=== PATIENT | male | born 1970 | race Caucasian/White ===

== ENCOUNTER 2016-08-03 21:18 | Inpatient (IN) | payer MEDICARE, OTHER ==
--- NOTE | ~2016-08-03 | HP ---
History And Physical [address] [place]. [address] NAME: NELSON ROBINS : 72 STATUS : ADM IN PAT#: [id number] AGE: 46 ADM/REG DATE : 08/03/16 MR#: [id number] REPORT SERV DATE: 08/04/16 DICTATED BY: DAVID GARCES DATE: 08/04/16 REPORT STATUS : Draft TRANSCRIBED BY: MODL DATE: 08/04/16 DATE OF ADMISSION: 08/03/2016 CHIEF COMPLAINT: A 46-year-old male, presenting with abdominal pain and vomiting. HISTORY OF PRESENT ILLNESS: The patient's history was obtained through careful interview with the patient, coupled with review of [facility] medical records. The patient states on 08/01/2016 he began to feel sick with typical symptoms of his gastroparesis. He described nausea, vomiting, unable to eat anything for two days. He has had fevers, chills, and diarrhea. He also describes left upper quadrant abdominal discomfort radiating to the epigastric portion of his stomach, cramping quality, 9/10 severity. No shortness of breath. No chest pain. No light headedness. REVIEW OF SYSTEMS: Otherwise, complete review of systems 14-point was reviewed and was negative. PAST MEDICAL HISTORY: 1. HIV, but has been on medications for years with good CD4 count. 2. Bipolar disorder with anxiety. 3. Recurrent colitis. 4. Gastroparesis. 5. Peptic ulcer disease seen by Dr. Antoine. PAST SURGICAL HISTORY: 1. Cholecystectomy. 2. Left foot surgery. ALLERGIES: NO KNOWN DRUG ALLERGIES. SOCIAL HISTORY: Quit smoking. No alcohol use. He is . Lives in [place], [place]. Have three children. Lives alone. He is on disability. Previously worked with his father in a [email or web address], and he is also trained as a TEACHERS AIDE. FAMILY HISTORY: Lupus, bipolar disorder, diabetes, and cancer. CURRENT MEDICATIONS: 1. Atripla HIV medication. 2. Klonopin 1 mg every 4 hours as needed. 3. Protonix 40 mg p.o. daily. 4. Zyprexa 15 mg p.o. daily. History And Physical [address] [address] NAME: NELSON ROBINS : 72 STATUS : ADM IN PAT#: [id number] AGE: 46 ADM/REG DATE : 08/03/16 MR#: [id number] REPORT SERV DATE: 08/04/16 DICTATED BY: DAVID GARCES DATE: 08/04/16 REPORT STATUS : Draft TRANSCRIBED BY: SAMARIA DATE: 08/04/16 5. Zoloft 100 mg p.o. daily. PHYSICAL EXAMINATION: VITAL SIGNS: Temperature 99.4, pulse 109, blood pressure 119/74, respiratory rate 20, and O2 saturation 94% on room air. GENERAL: An ill-appearing male, in evidence of distress secondary to vomiting. HEENT: Pupils equal, round, and reactive to light. No conjunctival pallor. No scleral icterus. Nares are patent. Oropharynx is clear of obstruction. Very dry mucous membranes. No intraoral lesions. NECK: Trachea midline. No thyromegaly. LYMPH: No cervical lymphadenopathy. No supraclavicular lymphadenopathy. RESPIRATORY: Clear to auscultation at bases. No wheezes, rales, or rhonchi. Normal respiratory effort. CARDIOVASCULAR: Tachycardic regular rhythm. No murmurs, rubs, or gallops. No extremity edema is appreciated. ABDOMEN: Significant epigastric abdominal pain with guarding. No rebound. Nondistended. Decreased bowel tones. No hepatosplenomegaly. DERMATOLOGICAL: Warm and dry extremities. No pallor. No cyanosis. PSYCHIATRIC: Normal affect. Good mood. Alert and oriented x3. LABORATORY DATA: White blood cell count 27.7, hemoglobin 18, hematocrit 48, and platelets 406. Sodium 133, potassium 4, chloride 96, bicarb 21, BUN 47, creatinine 5.53 from baseline creatinine of 0.87, and glucose 129. Urinalysis shows 6 white blood cells, 6 hyaline casts, lipase 104, lactic acid 1.8, and alkaline phosphatase 191. STUDIES: A CT scan of the abdomen and pelvis was read as negative. ASSESSMENT AND PLAN: 1. Acute renal failure. No obstruction by CT scan. Place on aggressive IV fluids and monitor closely. 2. Gastroparesis exacerbation. Place on IV Reglan and IV azithromycin. 3. Systemic inflammatory response syndrome versus sepsis with white blood cell count of 27.7, and tachycardia. Check blood cultures. Place on empiric IV antibiotics including Levaquin and Flagyl. 4. Human Immunodeficiency Virus, seems well controlled. 5. Bipolar disorder with anxiety. KPL/SAMARIA David Garces M.D. History And Physical [address] [address] NAME: NELSON ROBINS : 72 STATUS : ADM IN PAT#: [id number] AGE: 46 ADM/REG DATE : 08/03/16 MR#: [id number] REPORT SERV DATE: 08/04/16 DICTATED BY: DAVID GARCES DATE: 08/04/16 REPORT STATUS : Draft TRANSCRIBED BY: SAMARIA DATE: 08/04/16 / [id number] CC: MD Holden Zavaleta MD
--- NOTE | ~2016-08-03 | DS ---
Discharge Summary [facility] [address] [facility] [place]. [address] NAME: NELSON ROBINS : 72 STATUS : DIS IN PAT#: [id number] AGE: 46 ADM/REG DATE : 08/03/16 MR#: [id number] REPORT SERV DATE: 08/07/16 DICTATED BY: STEVIE JOHNSON DATE: 08/06/16 REPORT STATUS : Draft TRANSCRIBED BY: MODL DATE: 08/06/16 ADMISSION DATE: 08/03/2016 DISCHARGE DATE: 08/06/2016 DISCHARGE DIAGNOSES: 1. Acute kidney injury. 2. Metabolic acidosis related to acute kidney injury. 3. Volume depletion. 4. Gastroparesis exacerbation. 5. Systemic inflammatory response syndrome. 6. HIV, on highly active anti-retroviral therapy. 7. Bipolar disorder. 8. Previous history of peptic ulcer disease. HISTORY: The patient states that he began two days prior with nausea, vomiting, and abdominal pain, not able to keep anything down, with subjective fever and chills and diarrhea and some left mid abdominal pain. Because of these things, he presented to the emergency room at [facility]. Temp 99.4, pulse 109, respirations 20. His BUN was 47, creatinine 5.5. He was referred to our team for inpatient care. His lactic acid was 1.8. HOSPITAL COURSE: The patient was admitted to the hospital by our accounts receivable specialist partner. He was given IV fluid replacement. He was initially placed on Flagyl and Levaquin. His imaging included CT scan of chest, abdomen and pelvis. The findings by Radiology were only for evidence of previous cholecystectomy, otherwise unremarkable. His procalcitonin level was 0.21 and so he was taken off antibiotics. His white count on presentation was 27.7; by 08/05/2016, it was down to 8.3. Blood cultures no growth. His acute renal injury rapidly improved, so that by discharge, BUN 22 and creatinine 1.02. He did have a metabolic acidosis with his bicarbonate down to 18. He was given some fluids with bicarbonate in them, this resolved, and he was taken off those fluids and his serum bicarbonate stayed in the normal range. This patient's alkaline phosphatase was mildly elevated between 157 to 191, but this has been elevated consistently going back to 2011. His AST was mildly elevated at 68. ALT was normal. His PCP can follow this up longitudinally. He was given one dose of azithromycin 1 g IV at the time of admission to the hospital to help with gastroparesis and no further doses thereafter. At the time of discharge, he is ambulatory, eating solid food. No nausea. No vomiting. No shortness of breath. DISCHARGE MEDICATIONS: Atripla 1 p.o. daily, Zyprexa 15 mg daily, Protonix 40 mg daily, Florastor capsule twice a day for two weeks because he was on some antibiotics short-term here, Zoloft 100 mg daily, Tylenol 650 q.6 hours p.r.n. pain, Klonopin a milligram q.i.d. p.r.n. anxiety which is a chronic medicine for this patient. Discharge Summary [address] [address] NAME: NELSON ROBINS : 72 STATUS : DIS IN PAT#: [id number] AGE: 46 ADM/REG DATE : 08/03/16 MR#: [id number] REPORT SERV DATE: 08/07/16 DICTATED BY: STEVIE JOHNSON DATE: 08/06/16 REPORT STATUS : Draft TRANSCRIBED BY: SAMARIA DATE: 08/06/16 He is to follow up with his PCP, Dr. Holden Eduardo, within the next week or two. He can follow up longitudinally with his GI as well, but this has been somewhat confusing. In the past, he had seen Dr. Antoine and Dr. Edil Diane. He, at times, has seen Dr. Nataliya Li, and on the chart, it says Dr. Almodovar was his GI. I asked him who his GI doctor was right now and he told me he did not really know for sure. 22 minutes spent today in the discharge planning and execution. DICTATED BY: Emerson Murrell/SAMARIA Stevie Johnson M.D. / [id number] CC: Emerson Murrell MARK Richard Sadowitz, M.D. Munford Yates III, M.D. Vijaykurmar Diane, M.D. Ace Elina, M.D.
[2016-08-03 19:53] LABS: ER CBC TAT 0 Hrs 08 Mins; HEMATOCRIT 48.3 % (40.0-51.0); HEMOGLOBIN 17.6 g/dL (13.6-17.8); MEAN CORPUS HGB CONC 36.4 g/dL (32.0-36.0); MEAN CORPUSCULAR HEMOGLOB 31.2 pg (26.0-34.0); MEAN CORPUSCULAR VOLUME 85.5 fL (80-100); MEAN PLATELET VOLUME 12.9 fL (9.2-13.0); PLATELET COUNT 406 10/3/uL (150-400); RBC DISTRIBUTION WIDTH 12.9 % (12.0-16.0); RED CELL COUNT 5.65 10/6/uL (4.7-6.1); WHITE BLOOD CELLS 27.7 10/3/uL (4.5-10.5)
[2016-08-03 19:54] LABS: MANUAL DIFF YES %
[2016-08-03 20:05] LABS: A/G RATIO 1.3 (0.7-1.9); ALBUMIN 5.7 G/DL (3.5-5.0); CO2 (CARBON DIOXIDE) 21 MMOL/L (24-34); GLOBULIN 4.3 G/DL (2.5-4.1); SGOT(AST) 47 U/L (5-40); SGPT(ALT) 26 U/L (5-65); TOTAL BILIRUBIN 0.9 MG/DL (0-1.2)
[2016-08-03 20:06] LABS: ALKALINE PHOSPHATASE 191 U/L (45-117); BUN (BLOOD UREA NITROGEN) 47 MG/DL (6-23); CALCIUM, SERUM 10.5 MG/DL (8.5-10.4); CHLORIDE, SERUM 96 MMOL/L (96-112); CREATININE 5.53 MG/DL (0.70-1.30); GFR AFRICAN AMERICAN 13 ML/MIN (>=60); GFR NON AFRICAN AMERICAN 11 ML/MIN (>=60); GLUCOSE, SERUM 129 MG/DL (60-99); SODIUM, SERUM 133 MMOL/L (135-148)
[2016-08-03 20:07] LABS: ASCORBIC ACID (UR NOT ORDER) 20 (NEG); BILIRUBIN, URINE NEGATIVE (NEG); ER URINALYSIS TAT 0 Hrs 18 Mins; KETONE, URINE TRACE MG/DL (NEG); LEUKOCYTE ESTERASE(NOT OR TRACE (NEG); NITRITE (URINE) NEG (NEG); WBC (NOT ORDERED) (RFLEX) 6 (0-5)
[2016-08-03 20:26] LABS: BAND NEUTROPHILS 6 %; ER DIFF TAT 0 Hrs 41 Mins; LYMPHOCYTES 18 %; LYMPHOCYTES ABSOLUTE (CALC) 4.99 10/3/uL (0.67-4.30); MONOCYTES 5 %; MONOCYTES ABSOLUTE (CALC) 1.39 10/3/uL (0.21-1.20); NEUTROPHILS ABSOLUTE (CALC) 21.33 10/3/uL (2.02-8.40); PLATELET ESTIMATE SLT INC (ADEQUATE); REACTIVE LYMPHS OCC (0-2%) (0-5%); SEGMENTED NEUTROPHIL (0) 71 %; TOTAL NUCLEATED CELLS 100
[~2016-08-03 21:18] MED LIST: ATRIPLA PO; CIP5 PO; FLAG500TAB PO; KLONO1 PO; KLONOPIN PO; LORTAB 5 PO; MEGA RED PO; NORCO1 TA1 PO; PRILOSEC OTC20 MG PO; PROTONIX PO; PROTONIX20 MG PO; PT CANNOT RECALL MED; REG5 PO; SUCR PO; T PO; VITAMIN D PO; ZOFRAN4 PO; ZOFRANODT8 PO; ZOL100 PO; ZOL50 PO; ZYPREXA10 MG PO; ZYPREXA15 MG PO
[2016-08-03 21:21] LABS: DIRECT BILIRUBIN 0.2 MG/DL (0.0-0.4); INDIRECT BILIRUBIN(NOT ORDER) 0.7 MG/DL (0.1-0.9)
[2016-08-03] MEDS ORDERED: KLONO1 PO (21:45)
[2016-08-03 21:46] LABS: LACTATE 1.8 MMOL/L (0.3-2.4)
[2016-08-04 05:43] LABS: BASOPHILS 0 %; BASOPHILS ABSOLUTE 0.01 10/3/uL (0.0-0.16); EOSINOPHILS 0.1 %; EOSINOPHILS ABSOLUTE 0.02 10/3/uL (0.0-0.53); HEMATOCRIT 43.9 % (40.0-51.0); HEMOGLOBIN 15.9 g/dL (13.6-17.8); IMMATURE GRANULOCYTES 0.4 %; LYMPHOCYTES 16.2 %; LYMPHOCYTES ABSOLUTE 3.79 10/3/uL (0.67-4.30); MEAN CORPUS HGB CONC 36.2 g/dL (32.0-36.0); MEAN CORPUSCULAR HEMOGLOB 31.2 pg (26.0-34.0); MEAN CORPUSCULAR VOLUME 86.1 fL (80-100); MEAN PLATELET VOLUME 12.9 fL (9.2-13.0); MONOCYTES 10.6 %; MONOCYTES ABSOLUTE 2.48 10/3/uL (0.21-1.20); NEUTROPHILS 72.7 %; NEUTROPHILS ABSOLUTE 17.01 10/3/uL (2.02-8.40); PLATELET COUNT 353 10/3/uL (150-400); WHITE BLOOD CELLS 23.4 10/3/uL (4.5-10.5)
[2016-08-04 05:44] LABS: MANUAL DIFF NO %
[2016-08-04 05:46] LABS: INTERNATIONAL NORMAL RATI 1.2 UNITS (-); PARTIAL THROMBO TIME 27.1 SEC (22.5-37.2); PROTIME (NOT ORD) 14.7 SEC (12.0-14.5)
[2016-08-04 06:05] LABS: A/G RATIO 1.2 (0.7-1.9); ALBUMIN 4.8 G/DL (3.5-5.0); ALKALINE PHOSPHATASE 157 U/L (45-117); BUN (BLOOD UREA NITROGEN) 58 MG/DL (6-23); CALCIUM, SERUM 9.3 MG/DL (8.5-10.4); CHLORIDE, SERUM 99 MMOL/L (96-112); CO2 (CARBON DIOXIDE) 18 MMOL/L (24-34); CREATININE 4.87 MG/DL (0.70-1.30); GFR AFRICAN AMERICAN 15 ML/MIN (>=60); GFR NON AFRICAN AMERICAN 13 ML/MIN (>=60); GLOBULIN 3.9 G/DL (2.5-4.1); GLUCOSE, SERUM 129 MG/DL (60-99); POTASSIUM, SERUM 3.7 MMOL/L (3.5-5.3); SGOT(AST) 68 U/L (5-40); SGPT(ALT) 26 U/L (5-65); SODIUM, SERUM 133 MMOL/L (135-148); TOTAL PROTEIN 8.7 G/DL (6.0-8.5)
[2016-08-04 17:58] LABS: PROCALCITONIN 0.21 ng/mL (<0.5)
[2016-08-05 05:28] LABS: BASOPHILS 0.1 %; BASOPHILS ABSOLUTE 0.01 10/3/uL (0.0-0.16); EOSINOPHILS ABSOLUTE 0.09 10/3/uL (0.0-0.53); HEMOGLOBIN 13.1 g/dL (13.6-17.8); IMMATURE GRANULOCYTES 0.3 %; IMMATURE GRANULOCYTES ABSOLUTE 0.03 10/3/uL (0.0-0.11); LYMPHOCYTES 32.2 %; LYMPHOCYTES ABSOLUTE 2.79 10/3/uL (0.67-4.30); MANUAL DIFF NO %; MEAN CORPUS HGB CONC 35.4 g/dL (32.0-36.0); MEAN CORPUSCULAR HEMOGLOB 31.2 pg (26.0-34.0); MEAN CORPUSCULAR VOLUME 88.1 fL (80-100); MEAN PLATELET VOLUME 11.8 fL (9.2-13.0); MONOCYTES ABSOLUTE 0.87 10/3/uL (0.21-1.20); NEUTROPHILS 56.4 %; NEUTROPHILS ABSOLUTE 4.88 10/3/uL (2.02-8.40); PLATELET COUNT 216 10/3/uL (150-400); RBC DISTRIBUTION WIDTH 12.5 % (12.0-16.0); WHITE BLOOD CELLS 8.7 10/3/uL (4.5-10.5)
[2016-08-05 05:39] LABS: CALCIUM, SERUM 8.6 MG/DL (8.5-10.4); CHLORIDE, SERUM 107 MMOL/L (96-112); GFR AFRICAN AMERICAN 63 ML/MIN (>=60); GFR NON AFRICAN AMERICAN 54 ML/MIN (>=60); GLUCOSE, SERUM 111 MG/DL (60-99); POTASSIUM, SERUM 3.6 MMOL/L (3.5-5.3)
[2016-08-05 05:45] LABS: BUN (BLOOD UREA NITROGEN) 38 MG/DL (6-23); CO2 (CARBON DIOXIDE) 28 MMOL/L (24-34); CREATININE 1.53 MG/DL (0.70-1.30); SODIUM, SERUM 141 MMOL/L (135-148)
[2016-08-06 04:57] LABS: BASOPHILS 0.1 %; BASOPHILS ABSOLUTE 0.01 10/3/uL (0.0-0.16); EOSINOPHILS 1.6 %; EOSINOPHILS ABSOLUTE 0.12 10/3/uL (0.0-0.53); HEMATOCRIT 37.2 % (40.0-51.0); HEMOGLOBIN 13.2 g/dL (13.6-17.8); IMMATURE GRANULOCYTES 0.1 %; IMMATURE GRANULOCYTES ABSOLUTE 0.01 10/3/uL (0.0-0.11); LYMPHOCYTES 38.5 %; LYMPHOCYTES ABSOLUTE 2.82 10/3/uL (0.67-4.30); MEAN CORPUS HGB CONC 35.5 g/dL (32.0-36.0); MEAN CORPUSCULAR HEMOGLOB 31.4 pg (26.0-34.0); MEAN CORPUSCULAR VOLUME 88.6 fL (80-100); MEAN PLATELET VOLUME 11.9 fL (9.2-13.0); MONOCYTES ABSOLUTE 0.73 10/3/uL (0.21-1.20); NEUTROPHILS 49.7 %; NEUTROPHILS ABSOLUTE 3.64 10/3/uL (2.02-8.40); PLATELET COUNT 215 10/3/uL (150-400); RBC DISTRIBUTION WIDTH 12.4 % (12.0-16.0); WHITE BLOOD CELLS 7.3 10/3/uL (4.5-10.5)
[2016-08-06 04:59] LABS: MANUAL DIFF NO %
[2016-08-06 05:13] LABS: CALCIUM, SERUM 8.9 MG/DL (8.5-10.4); CHLORIDE, SERUM 106 MMOL/L (96-112); CO2 (CARBON DIOXIDE) 30 MMOL/L (24-34); GFR AFRICAN AMERICAN 102 ML/MIN (>=60); GFR NON AFRICAN AMERICAN 88 ML/MIN (>=60); GLUCOSE, SERUM 102 MG/DL (60-99); POTASSIUM, SERUM 3.6 MMOL/L (3.5-5.3); SODIUM, SERUM 141 MMOL/L (135-148)
[2016-08-06 05:20] LABS: BUN (BLOOD UREA NITROGEN) 22 MG/DL (6-23); CREATININE 1.02 MG/DL (0.70-1.30)
[2016-08-06] MEDS ORDERED: FLORASTOR250 MG PO (10:06)
[2016-08-06] MEDS ORDERED: T PO (10:08)
== END 2016-08-06 12:04 | disposition home or self-care (01) | DRG 682 ==
LOC: ER 21:18 → 2SO 23:02
PROVIDERS: Emergency Medicine; Hospitalist; Specialist; Student in an Organized Health Care Education/Training Program
DX: N17.9 Acute kidney failure, unspecified (principal); B20 Human immunodeficiency virus [HIV] disease; R65.11 Systemic inflammatory response syndrome (SIRS) of non-infectious origin with acute organ dysfunction; E87.2 Acidosis; K31.84 Gastroparesis; F31.9 Bipolar disorder, unspecified; F41.9 Anxiety disorder, unspecified; E86.9 Volume depletion, unspecified; Z87.11 Personal history of peptic ulcer disease; Z87.891 Personal history of nicotine dependence; Z98.890 Other specified postprocedural states; Z83.3 Family history of diabetes mellitus; Z80.9 Family history of malignant neoplasm, unspecified
CPT/HCPCS: 71250; 74176; 80048; 80053; 81001; 82150; 82248; 83605; 83690; 83735; 84145; 84443; 85025; 85610; 85730; 87040; 96374; 99285; A9270-GY; J0456; J1170; J1956; J2405; J2765